=== PATIENT | female | born 1950 | race Caucasian/White ===

== ENCOUNTER 2020-10-28 14:40 | Emergency (ER) | payer MEDICARE, OTHER ==
[2020-10-28] MEDS ORDERED: ZOFRAN ODT 4 MG4 MG SL (16:27)
== END 2020-10-28 16:25 | disposition home or self-care (01) ==
LOC: ER1 14:40
DX: R11.0 Nausea (principal); I10 Essential (primary) hypertension; F17.200 Nicotine dependence, unspecified, uncomplicated
CPT/HCPCS: 99283

== ENCOUNTER 2021-07-25 23:57 | Inpatient (IN) | payer MEDICARE, OTHER ==
[~2021-07-25] VITALS: Ht 160 cm; Wt 65.8 kg
[~2021-07-25 23:57] MED LIST: METHOTREXATE T2.5 MG PO; ZOFRAN ODT 4 MG4 MG SL
[2021-07-26 00:20] LABS: HEMOGLOBIN 13.8 gm/dl (12.3-15.3); RED BLOOD COUNT 4.08 M/UL (4.00-5.10); WHITE BLOOD COUNT 12.9 K/UL (4.5-11.0)
[2021-07-26 00:45] LABS: BUN/CREATININE RATIO 15 (0-10)
[2021-07-26 05:01] LABS: HEMOGLOBIN 12.5 gm/dl (12.3-15.3); RED BLOOD COUNT 3.76 M/UL (4.00-5.10); WHITE BLOOD COUNT 10.8 K/UL (4.5-11.0)
[2021-07-26 05:23] LABS: BUN/CREATININE RATIO 11 (0-10)
[2021-07-26] MEDS ORDERED: TENORMIN 25 MG25 MG PO (14:22)
--- NOTE | 2021-07-26 20:56 | NUR ---
ORDER TO RESTART HEPARIN PROTOCOL PER DR. MARIE. NEW LABS JUST ORDERED. WILL RESTART PROTOCOL ONCE LABS ARE RECEIVED.
--- NOTE | 2021-07-26 20:57 | NUR ---
PER DR. MARIE NO HEPARIN BOLUS TO BE GIVEN WHEN RESTARTING HEPARIN PROTOCOL.
[2021-07-26 22:28] LABS: HEMOGLOBIN 13.7 gm/dl (12.3-15.3); RED BLOOD COUNT 4.08 M/UL (4.00-5.10)
[2021-07-26 22:30] LABS: WHITE BLOOD COUNT 15.7 K/UL (4.5-11.0)
--- NOTE | 2021-07-27 16:49 | NUR ---
report given to Robert MENDOZA
--- NOTE | 2021-07-28 00:06 | NUR ---
PTS BP NOTED TO BE 73/50 HR 71. UPON ASSESSMENT OF PT SHE AWAKENS TO VOICE. DENIES ANY PAIN OR SYMPTOMS OF HYPOTENSION. NOTIFIED DR YARBROUGH AND ORDERS RECIEVED AND COMPLETED.
--- NOTE | 2021-07-28 01:11 | NUR ---
PT NOTED TO HAVE 5 BEAT RUN OF VTACH. NOTIFIED . ORDERS RECIEVED AND PLACED.
[2021-07-28 01:49] LABS: HEMOGLOBIN 12.4 gm/dl (12.3-15.3); RED BLOOD COUNT 3.7 M/UL (4.00-5.10); WHITE BLOOD COUNT 13.9 K/UL (4.5-11.0)
[2021-07-28 04:41] LABS: BUN/CREATININE RATIO 18 (0-10)
[2021-07-28] MEDS ORDERED: ASPIRIN EC81 MG PO (09:27)
[2021-07-28] MEDS ORDERED: LIPITOR40 MG PO (09:27)
[2021-07-28] MEDS ORDERED: ELIQUIS 5 MG TAB5 MG PO (09:27)
[2021-07-28] MEDS ORDERED: CLOPIDOGREL75 MG PO (09:27)
[2021-07-28] MEDS ORDERED: NICOTINE PATCH1 EAC2 TOP (09:27)
[2021-07-28] MEDS ORDERED: NITROGLYCERIN0.4 MG SL (09:27)
== END 2021-07-28 10:46 | disposition home or self-care (01) | DRG 247 ==
LOC: ER1 23:57 → M/S 07-26 03:19 → CDU 07-26 03:19 → M/S 07-26 03:50 → PROG CARE 07-27 17:08
PROVIDERS: Family Medicine; Internal Medicine Cardiovascular Disease; Internal Medicine Interventional Cardiology; ADMIT Internal Medicine
PROC: 4A023N7 Measurement of Cardiac Sampling and Pressure, Left Heart, Percutaneous Approach (ICD-10-PCS; principal; 2021-07-27)
PROC: 0270356 Dilation of Coronary Artery, One Artery, Bifurcation, with Two Drug-eluting Intraluminal Devices, Percutaneous Approach (ICD-10-PCS; 2021-07-27)
PROC: B2111ZZ Fluoroscopy of Multiple Coronary Arteries using Low Osmolar Contrast (ICD-10-PCS; 2021-07-27)
PROC: B24BZZZ Ultrasonography of Heart with Aorta (ICD-10-PCS; 2021-07-27)
DX: I48.0 Paroxysmal atrial fibrillation (principal); I20.0 Unstable angina; R07.89 Other chest pain; M06.9 Rheumatoid arthritis, unspecified; F17.210 Nicotine dependence, cigarettes, uncomplicated; Z66 Do not resuscitate; E87.6 Hypokalemia; I10 Essential (primary) hypertension; Z20.822 Contact with and (suspected) exposure to COVID-19; E78.5 Hyperlipidemia, unspecified; D69.6 Thrombocytopenia, unspecified; K21.9 Gastro-esophageal reflux disease without esophagitis; Z98.890 Other specified postprocedural states; Z90.710 Acquired absence of both cervix and uterus; Z79.899 Other long term (current) drug therapy; Z71.6 Tobacco abuse counseling; Z82.49 Family history of ischemic heart disease and other diseases of the circulatory system; Z90.89 Acquired absence of other organs; Z88.5 Allergy status to narcotic agent; Z79.82 Long term (current) use of aspirin
CPT/HCPCS: ECHO; 36415; 71045; 78452; 80048; 80053; 80061; 80307; 81001; 82550; 82553; 82607; 83036; 83735; 84100; 84439; 84443; 84484; 84550; 85025; 85027; 85347; 85610; 85730; 92920; 93005; 93306; 96374; 99152; 99153; 99285; A9502; C1725; C1769; C1874; C1894; C9113; C9600; J1644; J2250; J2270; J2405; J2785; J3010; J3246; J7040; Q9967; U0002